=== PATIENT | male | born 1970 | race American Indian/Alaskan Native ===

== ENCOUNTER 2018-10-15 13:55 | Emergency (ER) | payer OTHER ==
[2018-10-15 14:01] VITALS: BP 168/108
--- NOTE | 2018-10-15 14:03 | Emergency Department Report ---
Blank Doc - Documentation Documentation: This is a 48-year-old male that presents with right lumbar paraspinal pain rad iating to left lower leg. Patient stated has history of back pain and stated tuesday was heavy lifting and felt sharp pain with radiation. Denies any trauma. This initial assessment/diagnostic orders/clinical plan/treatment(s) is/are subject to change based on patient's health status, clinical progression and re- assessment by fellow clinical providers in the ED. Further treatment and workup at subsequent clinical providers discretion. Patient/guardians urged not to elope from the ED as their condition may be serious if not clinically assessed and managed. Initial orders include: 1- Patient sent to [facility] for further evaluation and treatment
--- NOTE | 2018-10-15 15:29 | Emergency Department Report ---
ED Back Pain/Injury HPI - General Chief Complaint: Extremity Injury, Lower Stated Complaint: SEVERE (L) SIDE PAIN Time Seen by Provider: 10/15/18 15:06 Source: patient Mode of arrival: Ambulatory Limitations: No Limitations - History of Present Illness Initial Comments: Patient is a 48-year-old male that presents emergency room with complaints of back pain radiating down his left leg times one week. Patient states these got chronic back pain or discomfort but one week ago he was lifting some boxes at work and sprained his back. Patient states that this pain is worse than his normal chronic back pain and it is now rating down his left leg. Patient states that the pain is a 10 out of 10. Patient states the pain is better with rest and worse with movement walking or lifting. Patient states that he lives a lot of boxes at work and he used him proper lifting technique and felt his back immediately. Patient denies saddle numbness. Patient denies chest pain or shortness of breath. Patient denies abdominal pain. Patient denies loss of control of bowel or bladder. MD Complaint: back pain -: Sudden Similar Symptoms Previously: Yes Place: work Radiation: left leg Severity: severe Severity scale (0 -10): 10 Quality: sharp Consistency: constant Improves With: immobilization, supine Worsens With: movement, walking Context: while lifting, bending Associated Symptoms: difficulty walking. denies: confusion, weakness, chest pain, numbness, cough, difficulty urinating, diaphoresis, incontinence, fever/chills, constipation, headaches, abdominal pain, loss of appetite, malaise, nausea/vomiting, rash, seizure, shortness of breath, syncope Treatments Prior to Arrival: heat therapy, ASA - Related Data Previous Rx's Medication Instructions Recorded Last Taken Type Metaxalone [Skelaxin] 800 mg PO TID PRN #15 tablet 10/15/18 Unknown Rx Tramadol HCl [Ultram] 50 mg PO Q4HR PRN #12 tablet 10/15/18 Unknown Rx methylPREDNISolone [Medrol] 4 mg PO DAILY 6 Days #1 tab.ds.pk 10/15/18 Unknown Rx Allergies Allergy/AdvReac Type Severity Reaction Status Date / Time No Known Allergies Allergy Unverified 10/15/18 13:59 ED Review of Systems ROS: Stated complaint: SEVERE (L) SIDE PAIN Other details as noted in HPI Constitutional: denies: chills, fever Eyes: denies: eye pain, eye discharge, vision change ENT: denies: ear pain, throat pain Respiratory: denies: cough, shortness of breath, wheezing Cardiovascular: denies: chest pain, palpitations Endocrine: no symptoms reported Gastrointestinal: denies: abdominal pain, nausea, diarrhea Genitourinary: denies: urgency, dysuria Musculoskeletal: back pain. denies: joint swelling, arthralgia Skin: denies: rash, lesions Neurological: denies: headache, weakness, paresthesias Psychiatric: denies: anxiety, depression Hematological/Lymphatic: denies: easy bleeding, easy bruising ED Past Medical Hx - Past Medical History Hx Hypertension: Yes - Surgical History Past Surgical History?: No - Social History Smoking Status: Current Every Day Smoker Substance Use Type: Alcohol, Marijuana - Medications Home Medications: Home Medications Medication Instructions Recorded Confirmed Last Taken Type Metaxalone [Skelaxin] 800 mg PO TID PRN #15 tablet 10/15/18 Unknown Rx Tramadol HCl [Ultram] 50 mg PO Q4HR PRN #12 tablet 10/15/18 Unknown Rx methylPREDNISolone [Medrol] 4 mg PO DAILY 6 Days #1 tab.ds.pk 10/15/18 Unknown Rx ED Physical Exam - General Limitations: No Limitations General appearance: alert, in no apparent distress - Head Head exam: Present: atraumatic, normocephalic - Eye Eye exam: Present: normal appearance - ENT ENT exam: Present: mucous membranes moist - Neck Neck exam: Present: normal inspection - Respiratory Respiratory exam: Present: normal lung sounds bilaterally. Absent: respiratory distress - Cardiovascular Cardiovascular Exam: Present: regular rate, normal rhythm. Absent: systolic murmur, diastolic murmur, rubs, gallop - GI/Abdominal GI/Abdominal exam: Present: soft, normal bowel sounds - Rectal Rectal exam: Present: deferred - Extremities Exam Extremities exam: Present: normal inspection - Back Exam Back exam: Present: normal inspection, paraspinal tenderness - Neurological Exam Neurological exam: Present: alert, oriented X3 - Psychiatric Psychiatric exam: Present: normal affect, normal mood - Skin Skin exam: Present: warm, dry, intact, normal color. Absent: rash ED Course Vital Signs 10/15/18 10/15/18 14:00 14:02 Temperature 98.5 F 98.5 F Pulse Rate 116 H 116 H Respiratory 20 18 Rate Blood Pressure 168/108 Blood Pressure 168/108 [Left] O2 Sat by Pulse 100 100 Oximetry - Reevaluation(s) Reevaluation #1: Patient has had an x-ray done. X-ray is normal. Patient stable for discharge. Patient given all discharge instructions. Discussed all results with patient. Patient to follow up with orthopedist and primary care. Patient voiced understanding of all instructions. Patient will be given steroids and muscle relaxer. 10/15/18 16:26 ED Medical Decision Making - Radiology Data Radiology results: report reviewed, image reviewed PROCEDURE: Lumbar spine. TECHNIQUE: 3 views. HISTORY: Back pain. COMPARISONS: None. FINDINGS: The lumbar vertebrae have normal height and alignment. There are no fractures. There is no spondylolisthesis. The disc spaces are well-maintained. The sacrum and sacroiliac joints appear normal. IMPRESSION: Normal study. - Medical Decision Making Patient is a 48-year-old male that is emergency room with complaints of left- sided back pain radiating down his left leg. Patient clinical findings consistent with lumbar strain. Patient given discharge instructions. Patient is stable for discharge. Patient x-ray done which was normal. Patient states that he wants to be off work. Patient will be given a work note to be off work and patient will need to be cleared by orthopedist to return to work. - Differential Diagnosis lumbar strain/sprain. Back pain. Acute on chronic pain Critical care attestation.: If time is entered above; I have spent that time in minutes in the direct care of this critically ill patient, excluding procedure time. ED Disposition Clinical Impression: Lumbar sprain Qualifiers: Encounter type: initial encounter Qualified Code(s): S33.5XXA - Sprain of ligaments of lumbar spine, initial encounter Disposition: TO HOME OR SELFCARE Is pt being admited?: No Does the pt Need Aspirin: No Condition: Stable Instructions: Low Back Strain (ED), Acute Low Back Pain (ED) Additional Instructions: Patient to follow-up with primary care in 2-3 days. Patient to follow orthopedist in 2- 3 days. Patient to return to the ER if condition worsens. Patient take all meds as directed. Patient to rest. Patient to avoid lifting and work until cleared by orthopedist. Prescriptions: methylPREDNISolone [Medrol] 4 mg PO DAILY 6 Days #1 tab.ds.pk Metaxalone [Skelaxin] 800 mg PO TID PRN #15 tablet PRN Reason: Spasms Tramadol HCl [Ultram] 50 mg PO Q4HR PRN #12 tablet PRN Reason: Pain , Severe (7-10) Referrals: GLADYS KOROMA MD [Primary Care Provider] - 2-3 Days BROOKE ZHU MD [Staff Physician] - 2-3 Days Forms: Work/School Release Form(ED) Time of Disposition: 16:29
--- NOTE | 2018-10-15 16:19 | XRay Report ---
PROCEDURE: Lumbar spine. TECHNIQUE: 3 views. HISTORY: Back pain. COMPARISONS: None. FINDINGS: The lumbar vertebrae have normal height and alignment. There are no fractures. There is no spondyloli sthesis. The disc spaces are well-maintained. The sacrum and sacroiliac joints appear normal. IMPRESSION: Normal study. This document is electronically signed by Abimael Young MD., October 15 2018 04:17:22 PM ET
== END 2018-10-15 16:45 | disposition home or self-care (01) ==
LOC: ED 13:55
DX: S33.5XXA Sprain of ligaments of lumbar spine, initial encounter (principal); I10 Essential (primary) hypertension; F17.200 Nicotine dependence, unspecified, uncomplicated; X50.0XXA Overexertion from strenuous movement or load, initial encounter; Y93.89 Activity, other specified; Y92.69 Other specified industrial and construction area as the place of occurrence of the external cause; Y99.8 Other external cause status
CPT/HCPCS: 72100; 99283

== ENCOUNTER 2019-12-11 14:14 | Emergency (ER) | payer SELFPAY ==
[2019-12-11 14:24] VITALS: BP 121/83
[2019-12-11] MEDS ORDERED: HYDROcodone/ACETAMINOPHEN 5-325 MG TAB PO STA (15:27)
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
== END 2019-12-11 16:15 | disposition home or self-care (01) ==
LOC: ED 14:14
DX: S39.011A Strain of muscle, fascia and tendon of abdomen, initial encounter (principal); I10 Essential (primary) hypertension; F17.200 Nicotine dependence, unspecified, uncomplicated; Z79.899 Other long term (current) drug therapy; V49.49XA Driver injured in collision with other motor vehicles in traffic accident, initial encounter; Y93.89 Activity, other specified; Y92.410 Unspecified street and highway as the place of occurrence of the external cause; Y99.8 Other external cause status
CPT/HCPCS: 99282

== ENCOUNTER 2020-05-02 11:01 | Emergency (ER) | payer OTHER ==
[2020-05-02 11:19] VITALS: BP 155/88
--- NOTE | 2020-05-02 12:38 | Emergency Department Report ---
- General Chief complaint: Skin/Abscess/Foreign Body Stated complaint: BOIL ON (R) SIDE OF FACE Time Seen by Provider: 05/02/20 12:29 Source: patient Mode of arrival: Ambulatory Limitations: No Limitations - History of Present Illness Initial comments: 50-year-old -[place] male presents to the emergency room for a boil-like lesion to his right cheek that he has had for years and states that in the last 2-1/2 weeks it started to get larger after he had picked it. Patient state is been having a foul drainage. He reports mild pain no nausea vomiting no fever chills. Patient does admit to hypertension. MD complaint: abscess/boil Onset/Timin -: week(s) Tetanus Up to Date: yes Location: face Severity scale (0 -10): 2 Improves with: none Worsens with: none Associated symptoms: denies other symptoms Treatments Prior to Arrival: none - Related Data Previous Rx's Medication Instructions Recorded Last Taken Type Metaxalone [Skelaxin] 800 mg PO TID PRN #15 tablet 10/15/18 Unknown Rx Tramadol HCl [Ultram] 50 mg PO Q4HR PRN #12 tablet 10/15/18 Unknown Rx methylPREDNISolone [Medrol] 4 mg PO DAILY 6 Days #1 tab.ds.pk 10/15/18 Unknown Rx Ketorolac [Toradol] 10 mg PO Q6H PRN #15 tablet 12/11/19 Unknown Rx methOCARBAMOL [Robaxin TAB] 750 mg PO Q8H PRN #14 tablet 12/11/19 Unknown Rx Clindamycin [Clindamycin CAP] 300 mg PO Q8H 7 Days #21 cap 05/02/20 Unknown Rx Allergies Allergy/AdvReac Type Severity Reaction Status Date / Time No Known Allergies Allergy Unverified 10/15/18 13:59 Abscess Boil HPI - HPI Chief Complaint: Skin/Abscess/Foreign Body Stated Complaint: BOIL ON (R) SIDE OF FACE Time Seen by Provider: 05/02/20 12:29 Home Medications: Previous Rx's Medication Instructions Recorded Last Taken Type Metaxalone [Skelaxin] 800 mg PO TID PRN #15 tablet 10/15/18 Unknown Rx Tramadol HCl [Ultram] 50 mg PO Q4HR PRN #12 tablet 10/15/18 Unknown Rx methylPREDNISolone [Medrol] 4 mg PO DAILY 6 Days #1 tab.ds.pk 10/15/18 Unknown Rx Ketorolac [Toradol] 10 mg PO Q6H PRN #15 tablet 12/11/19 Unknown Rx methOCARBAMOL [Robaxin TAB] 750 mg PO Q8H PRN #14 tablet 12/11/19 Unknown Rx Clindamycin [Clindamycin CAP] 300 mg PO Q8H 7 Days #21 cap 05/02/20 Unknown Rx Allergies/Adverse Reactions: Allergies Allergy/AdvReac Type Severity Reaction Status Date / Time No Known Allergies Allergy Unverified 10/15/18 13:59 ED Review of Systems ROS: Stated complaint: BOIL ON (R) SIDE OF FACE Other details as noted in HPI Comment: All other systems reviewed and negative ED Past Medical Hx - Past Medical History Previous Medical History?: Yes Hx Hypertension: Yes - Social History Smoking Status: Current Every Day Smoker Substance Use Type: Alcohol - Medications Home Medications: Home Medications Medication Instructions Recorded Confirmed Last Taken Type Metaxalone [Skelaxin] 800 mg PO TID PRN #15 tablet 10/15/18 Unknown Rx Tramadol HCl [Ultram] 50 mg PO Q4HR PRN #12 tablet 10/15/18 Unknown Rx methylPREDNISolone [Medrol] 4 mg PO DAILY 6 Days #1 tab.ds.pk 10/15/18 Unknown Rx Ketorolac [Toradol] 10 mg PO Q6H PRN #15 tablet 12/11/19 Unknown Rx methOCARBAMOL [Robaxin TAB] 750 mg PO Q8H PRN #14 tablet 12/11/19 Unknown Rx Clindamycin [Clindamycin CAP] 300 mg PO Q8H 7 Days #21 cap 05/02/20 Unknown Rx ED Physical Exam - General Limitations: No Limitations General appearance: alert, in no apparent distress - Head Head exam: Present: atraumatic, normocephalic - Eye Eye exam: Present: normal appearance - ENT ENT exam: Present: mucous membranes moist - Neck Neck exam: Present: normal inspection - Neurological Exam Neurological exam: Present: alert, oriented X3, normal gait - Psychiatric Psychiatric exam: Present: normal affect, normal mood - Skin Skin exam: Present: warm, dry, intact - Expanded Skin Exam Expanded Description of rash: Present: size (quarter ), tenderness, macular, discharge, other (Hyperpigmented) ED Course Vital Signs 05/02/20 11:18 Temperature 98.7 F Pulse Rate 99 H Respiratory 18 Rate Blood Pressure 155/88 O2 Sat by Pulse 97 Oximetry ED Medical Decision Making - Medical Decision Making 50-year-old -[place] male presents to the emergency room for a boil-like lesion to his right cheek that he has had for years and states that in the last 2-1/2 weeks it started to get larger after he had picked it. Patient state is been having a foul drainage. He reports mild pain no nausea vomiting no fever chills. Patient does admit to hypertension. 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 Critical care attestation.: If time is entered above; I have spent that time in minutes in the direct care of this critically ill patient, excluding procedure time. ED Disposition Clinical Impression: Boil, face Disposition: [id number] TO HOME OR SELFCARE Is pt being admited?: No Does the pt Need Aspirin: No Condition: Stable Instructions: Furunculosis and Carbunculosis (ED) Additional Instructions: Please keep face clean and dry. Complete antibiotics pain medication as needed. Prescriptions: Clindamycin [Clindamycin CAP] 300 mg PO Q8H 7 Days #21 cap Referrals: your, primary care provider [Other] - 3-5 Days Forms: Work/School Release Form(ED)
== END 2020-05-02 13:07 | disposition home or self-care (01) ==
LOC: ED 11:01
DX: L02.02 Furuncle of face (principal); I10 Essential (primary) hypertension; F17.200 Nicotine dependence, unspecified, uncomplicated; Z79.2 Long term (current) use of antibiotics; Z79.899 Other long term (current) drug therapy
CPT/HCPCS: 99282